=== PATIENT | male | born 1965 | race African-American/Black ===

== ENCOUNTER 2020-09-19 22:14 | Inpatient (IN) | payer MEDICARE, OTHER ==
[~2020-09-19] VITALS: Ht 167.6 cm; Wt 96.2 kg
[2020-09-19] MEDS ORDERED: HYDROMORPHONE 1MG/1ML INJ IV STA (22:33)
[2020-09-19] MEDS ORDERED: ONDANSETRON HCL INJ 2MG/ML 2ML 2 MG/ML VIAL IV STA (22:33)
[2020-09-19] MEDS ORDERED: DIATRIZOATE MEGL/DIATRIZOA SOD 30 ML BTL PO ONE (22:37)
[2020-09-19 23:07] LABS: BASOPHILS % 0.5 % (0.0-1.0); EOSINOPHILS # (AUTO) 0.2 (0.0-0.4); EOSINOPHILS % 2.5 % (0.0-6.0); HEMATOCRIT 26.8 % (38.2-49.6); HEMOGLOBIN 8.4 g/dL (14.0-18.0); LYMPHOCYTES # (AUTO) 1.4 (1.0-3.2); LYMPHOCYTES % 17.1 % (18.0-39.1); MEAN CORPUSCULAR HEMOGLOBIN 30.7 pg (28-32); MEAN CORPUSCULAR HGB CONC 31.3 g/dL (31-35); MEAN CORPUSCULAR VOLUME 97.8 fL (81-99); MONOCYTES # (AUTO) 1.2 (0.2-0.8); MONOCYTES % 14.9 % (4.4-11.3); NEUTROPHILS # (AUTO) 5.4 (2.1-6.9); NEUTROPHILS % 64.6 % (38.7-80.0); PLATELET COUNT 311 x10e3/uL (140-360); RED BLOOD COUNT 2.74 x10e6/uL (4.3-5.7); RED CELL DISTRIBUTION WIDTH 13.2 % (11.7-14.4)
[2020-09-19 23:27] LABS: ALBUMIN 2.3 g/dL (3.5-5.0); ALBUMIN/GLOBULIN RATIO 0.5 (0.8-2.0); ANION GAP 20.8 mmol/L (8-16); CALCIUM 8.9 mg/dL (8.4-10.2); CREATININE, SERUM 13.23 mg/dL (0.72-1.25); POTASSIUM 4.8 mmol/L (3.5-5.1)
[2020-09-19] MEDS ORDERED: IOPAMIDOL 370 MG/ML 200 ML INFUS..BTL INJ ONE (23:27)
[2020-09-20] VITALS (10 sets, daily range): BP systolic 125–145; BP diastolic 80–93
[2020-09-20] MEDS ORDERED: ONDANSETRON HCL INJ 2MG/ML 2ML 2 MG/ML VIAL IV STA (00:56)
[2020-09-20] MEDS ORDERED: HYDROMORPHONE 1MG/1ML INJ IV STA (00:56)
[2020-09-20] MEDS ORDERED: CLONAZEPAM1 MG PO (04:38)
[2020-09-20] MEDS ORDERED: LEXAPRO10 MG PO (04:38)
[2020-09-20] MEDS ORDERED: CARVEDILOL12.5 MG PO (04:38)
[2020-09-20] MEDS ORDERED: MIRALAX17 GM PO (04:38)
[2020-09-20] MEDS ORDERED: LISINOPRIL10 MG PO (04:38)
[2020-09-20] MEDS ORDERED: VELPHORO500 MG PO (04:38)
[2020-09-20] MEDS ORDERED: PROTONIX20 MG PO (04:38)
[2020-09-20] MEDS ORDERED: LIPITOR10 MG PO (04:38)
[2020-09-20] MEDS: HYDROMORPHONE 1MG/1ML INJ IV PRN ×6 (05:18→21:43)
[2020-09-20] MEDS: ONDANSETRON HCL INJ 2MG/ML 2ML 2 MG/ML VIAL IV PRN ×5 (05:18→21:43)
[2020-09-20] MEDS ORDERED: SODIUM CHLORIDE 0.9% 1000ML 2,000 ML ONE ×2 (10:16→11:18)
[2020-09-20] MEDS ORDERED: CEFEPIME HCL 1 GM VIAL IV SCH (14:15)
[2020-09-20] MEDS ORDERED: CEFEPIME 1GM/NS 0.9% 50 ML 50 ML IV SCH ×2 (14:45→17:00)
[2020-09-20] MEDS: METRONIDAZOLE 500MG/NS 100ML 100 ML IV SCH ×2 (15:36→21:43)
[2020-09-20] MEDS ORDERED: SODIUM CHLORIDE 0.9% 250ML 250 ML ONE (15:36)
[2020-09-20] MEDS: CEFEPIME 1GM/NS 0.9% 50 ML 50 ML IV SCH (16:46)
[2020-09-21] VITALS (8 sets, daily range): BP systolic 121–166; BP diastolic 80–99
[2020-09-21] MEDS: ONDANSETRON HCL INJ 2MG/ML 2ML 2 MG/ML VIAL IV PRN ×5 (01:51→20:40)
[2020-09-21] MEDS: HYDROMORPHONE 1MG/1ML INJ IV PRN ×5 (01:51→20:40)
[2020-09-21] MEDS: CEFEPIME 1GM/NS 0.9% 50 ML 50 ML IV SCH ×2 (04:34→17:00)
[2020-09-21] MEDS: METRONIDAZOLE 500MG/NS 100ML 100 ML IV SCH ×3 (05:45→21:41)
[2020-09-21] MEDS: FAMOTIDINE 20 MG/2 ML VIAL IV SCH (10:41)
[2020-09-21 15:21] LABS: BASOPHILS # (AUTO) 0.1 (0.0-0.1); BASOPHILS % 0.6 % (0.0-1.0); EOSINOPHILS # (AUTO) 0.3 (0.0-0.4); EOSINOPHILS % 3.6 % (0.0-6.0); HEMATOCRIT 26.6 % (38.2-49.6); HEMOGLOBIN 8.4 g/dL (14.0-18.0); LYMPHOCYTES % 11.9 % (18.0-39.1); MEAN CORPUSCULAR HGB CONC 31.6 g/dL (31-35); MEAN CORPUSCULAR VOLUME 98.2 fL (81-99); MONOCYTES # (AUTO) 0.9 (0.2-0.8); MONOCYTES % 10.9 % (4.4-11.3); NEUTROPHILS % 72.6 % (38.7-80.0); PLATELET COUNT 348 x10e3/uL (140-360); RED BLOOD COUNT 2.71 x10e6/uL (4.3-5.7)
[2020-09-21 15:47] LABS: ANION GAP 21.8 mmol/L (8-16); CREATININE, SERUM 16.13 mg/dL (0.72-1.25); POTASSIUM 5.8 mmol/L (3.5-5.1)
[2020-09-21] MEDS: DEXTROSE 5% 1,000 ML IV SCH (16:15)
[2020-09-21 16:31] LABS: FERRITIN 1644.07 ng/mL (21.81-274.66)
[2020-09-21] MEDS ORDERED: DEXTROSE 10% 1,000 ML IV SCH (23:30)
[2020-09-22] VITALS (7 sets, daily range): BP systolic 120–154; BP diastolic 73–93
[2020-09-22] MEDS: ONDANSETRON HCL INJ 2MG/ML 2ML 2 MG/ML VIAL IV PRN ×2 (01:00→05:28)
[2020-09-22] MEDS: HYDROMORPHONE 1MG/1ML INJ IV PRN ×6 (01:00→21:08)
[2020-09-22] MEDS: CEFEPIME 1GM/NS 0.9% 50 ML 50 ML IV SCH ×2 (05:00→18:27)
[2020-09-22] MEDS: METRONIDAZOLE 500MG/NS 100ML 100 ML IV SCH ×3 (06:00→21:27)
[2020-09-22 06:35] LABS: INR 1.08; PROTHROMBIN TIME 14.6 seconds (11.9-14.5)
[2020-09-22] MEDS ORDERED: SODIUM CHLORIDE 0.9% 1000ML 2,000 ML ONE (08:51)
[2020-09-22] MEDS: DEXTROSE 5% 1,000 ML IV SCH (08:55)
[2020-09-22] MEDS: FAMOTIDINE 20 MG/2 ML VIAL IV SCH (09:18)
[2020-09-22] MEDS: IRON SUCROSE 100 MG in SODIUM CHLORIDE 0.9% 100 ML 100 ML IV SCH ×2 (09:18→09:22)
[2020-09-22] MEDS ORDERED: DEXTROSE 10% 1,000 ML IV SCH (14:15)
[2020-09-22] MEDS ORDERED: DEXTROSE 50% SYRINGE 50 ML IV PRN (14:30)
[2020-09-22] MEDS: INSULIN LISPRO 100 UNIT/1 ML 3ML VIAL SQ SCH (17:55)
[2020-09-22 18:02] LABS: LYMPHOCYTES,BODY FLUID 92 %; MONO/MACROPHG,BODY FLUID 5 %; NEUTROPHILS,BODY FLUID 1 %; OTHER CELLS,BODY FLUID 2 %
[2020-09-22 18:11] LABS: BODY FLUID TYPE PERITONEAL
[2020-09-22 18:12] LABS: BODY FLUID APPEARANCE TURBID; BODY FLUID COLOR YELLOW; RBC,BODY FLUID 117 cells/uL; WBC,BODY FLUID 81 cells/uL
[2020-09-22] MEDS: EPOETIN ALFA-EPBX 10,000 UNIT/ML VIAL SC SCH (18:27)
[2020-09-22] MEDS: CENTRAL TPN FORMULA 1 BAG IV SCH (20:00)
[2020-09-22] MEDS: PROMETHAZINE 12.5MG/ NACL 0.9% 12.5 MG/50 ML BAG IV PRN (21:08)
[2020-09-23] MEDS: HYDROMORPHONE 1MG/1ML INJ IV PRN ×6 (01:10→22:34)
[2020-09-23] MEDS ORDERED: LORAZEPAM INJ 2 MG/ML VIAL IV ONE (01:45)
[2020-09-23 04:00] VITALS: BP 137/93
[2020-09-23] MEDS: CEFEPIME 1GM/NS 0.9% 50 ML 50 ML IV SCH (05:00)
[2020-09-23] MEDS: INSULIN LISPRO 100 UNIT/1 ML 3ML VIAL SQ SCH ×4 (06:00→18:00)
[2020-09-23] MEDS: METRONIDAZOLE 500MG/NS 100ML 100 ML IV SCH ×3 (06:00→21:19)
[2020-09-23] MEDS: PROMETHAZINE 12.5MG/ NACL 0.9% 12.5 MG/50 ML BAG IV PRN ×2 (06:00→22:33)
[2020-09-23 07:39] LABS: BASOPHILS # (AUTO) 0.1 (0.0-0.1); EOSINOPHILS # (AUTO) 0.4 (0.0-0.4); HEMATOCRIT 24.2 % (38.2-49.6); HEMOGLOBIN 7.7 g/dL (14.0-18.0); LYMPHOCYTES # (AUTO) 0.9 (1.0-3.2); LYMPHOCYTES % 12.7 % (18.0-39.1); MEAN CORPUSCULAR HEMOGLOBIN 30.8 pg (28-32); MEAN CORPUSCULAR HGB CONC 31.8 g/dL (31-35); MEAN CORPUSCULAR VOLUME 96.8 fL (81-99); MONOCYTES # (AUTO) 1.1 (0.2-0.8); MONOCYTES % 14.5 % (4.4-11.3); NEUTROPHILS # (AUTO) 4.9 (2.1-6.9); NEUTROPHILS % 66.4 % (38.7-80.0); PLATELET COUNT 307 x10e3/uL (140-360)
[2020-09-23 07:59] VITALS: BP 130/95
[2020-09-23 08:04] LABS: ALBUMIN 1.9 g/dL (3.5-5.0); ALBUMIN/GLOBULIN RATIO 0.4 (0.8-2.0); ANION GAP 11.6 mmol/L (8-16); CALCIUM 8.2 mg/dL (8.4-10.2); CREATININE, SERUM 10.6 mg/dL (0.72-1.25); POTASSIUM 3.6 mmol/L (3.5-5.1)
[2020-09-23 08:07] LABS: CALCIUM IONIZED 1.2 mmol/L (1.09-1.30)
[2020-09-23 08:14] LABS: MAGNESIUM 1.7 MG/DL (1.3-2.1); PHOSPHORUS 3.9 MG/DL (2.3-4.7)
[2020-09-23 08:24] LABS: BILIRUBIN,DIRECT 0.1 mg/dL (0.0-0.5)
[2020-09-23 08:47] VITALS: BP 130/95
[2020-09-23 13:12] VITALS: BP 151/90
[2020-09-23] MEDS: FAMOTIDINE 20 MG/2 ML VIAL IV SCH (14:22)
[2020-09-23] MEDS: CLONIDINE HCL 0.2 MG/24 HR 1 EA PATCH TOP SCH (14:35)
[2020-09-23 16:26] VITALS: BP 154/93
[2020-09-23] MEDS: CENTRAL TPN FORMULA 1 BAG IV SCH (19:41)
[2020-09-23 20:00] VITALS: BP_SYST 147; BP_SYST 154; BP_DIAS 93
[2020-09-23] MEDS: BISACODYL 10 MG SUPP PR SCH (20:56)
[2020-09-24] VITALS (13 sets, daily range): BP systolic 121–159; BP diastolic 80–103
[2020-09-24] MEDS: HYDROMORPHONE 1MG/1ML INJ IV PRN ×4 (02:12→21:35)
[2020-09-24] MEDS: METRONIDAZOLE 500MG/NS 100ML 100 ML IV SCH ×3 (05:01→22:11)
[2020-09-24] MEDS: CEFEPIME 1GM/NS 0.9% 50 ML 50 ML IV SCH (05:06)
[2020-09-24] MEDS: INSULIN LISPRO 100 UNIT/1 ML 3ML VIAL SQ SCH ×4 (06:00→20:23)
[2020-09-24] MEDS: PROMETHAZINE 12.5MG/ NACL 0.9% 12.5 MG/50 ML BAG IV PRN (06:04)
[2020-09-24 07:08] LABS: ALBUMIN/GLOBULIN RATIO 0.4 (0.8-2.0); ANION GAP 15.7 mmol/L (8-16); CREATININE, SERUM 12.19 mg/dL (0.72-1.25); POTASSIUM 3.7 mmol/L (3.5-5.1)
[2020-09-24] MEDS ORDERED: SODIUM CHLORIDE 0.9% 1000ML 2,000 ML ONE (08:50)
[2020-09-24] MEDS ORDERED: HEPARIN SOD (PORCINE) 5,000 UNIT/ML VIAL SC SCH (09:00)
[2020-09-24] MEDS: FAMOTIDINE 20 MG/2 ML VIAL IV SCH (09:00)
[2020-09-24] MEDS: BISACODYL 10 MG SUPP PR SCH (09:00)
[2020-09-24] MEDS: IRON SUCROSE 100 MG in SODIUM CHLORIDE 0.9% 100 ML 100 ML IV SCH (09:00)
[2020-09-24] MEDS ORDERED: ALBUMIN 25% 12.5GM 0.25 GM/ML BTL IV PRN (10:15)
[2020-09-24] MEDS ORDERED: SODIUM CHLORIDE 0.9% 1000ML 2,000 ML IV PRN (10:15)
[2020-09-24] MEDS ORDERED: SODIUM CHLORIDE 0.9% 250ML 250 ML IV ONE (12:00)
[2020-09-24] MEDS ORDERED: MIDAZOLAM HCL 2 MG/2 ML VIAL ONE (12:05)
[2020-09-24] MEDS ORDERED: FENTANYL CITRATE/PF 100MCG/2 ML INJ ONE ×2 (12:05→17:19)
[2020-09-24] MEDS ORDERED: HEPARIN SOD/SOD CHLORIDE 1,000 ML ONE (12:06)
[2020-09-24] MEDS ORDERED: SODIUM CHLORIDE 0.9% IV ONE (14:00)
[2020-09-24] MEDS ORDERED: DESMOPRESSIN ACETATE IV ONE (14:00)
[2020-09-24] MEDS ORDERED: BUPIVACAINE LIPOSOME/PF 266 MG/20 ML IJ ONE (16:26)
[2020-09-24] MEDS ORDERED: BUPIVACAINE 0.25% 30ML SDV ONE (16:27)
[2020-09-24] MEDS ORDERED: ONDANSETRON HCL INJ 2MG/ML 2ML 2 MG/ML VIAL ONE ×2 (16:31→17:18)
[2020-09-24] MEDS ORDERED: ROCURONIUM BROMIDE 10 MG/ML 5ML VIAL IV ONE (16:31)
[2020-09-24] MEDS ORDERED: GLYCOPYRROLATE INJ 0.2 MG/ML VIAL ONE (16:31)
[2020-09-24] MEDS ORDERED: SEVOFLURANE INHAL SOLN 250 ML PEN BTL ONE (16:31)
[2020-09-24] MEDS ORDERED: LIDOCAINE HCL 2% LOCAL INJ 5 ML SDV VIAL INJ ONE (16:31)
[2020-09-24] MEDS ORDERED: PROPOFOL IV EMULSION 10 MG/ML 20 ML VIAL ONE (16:31)
[2020-09-24] MEDS ORDERED: NEOSTIGMINE 1 MG/ML 10ML VIAL ONE (16:31)
[2020-09-24] MEDS ORDERED: LIDOCAINE HCL 2% JELLY 5 ML TUBE ONE (16:31)
[2020-09-24] MEDS ORDERED: ONDANSETRON HCL INJ 2MG/ML 2ML 2 MG/ML VIAL IV PRN (17:00)
[2020-09-24] MEDS: SODIUM CHLORIDE 0.9% 250ML IRRIG IR SCH ×2 (17:00→20:52)
[2020-09-24] MEDS ORDERED: HYDROMORPHONE 1MG/1ML INJ ONE (18:30)
[2020-09-24] MEDS: ACETAMINOPHEN 1000 MG/100 ML IV PRN (19:30)
[2020-09-24] MEDS: EPOETIN ALFA-EPBX 10,000 UNIT/ML VIAL SC SCH (19:52)
[2020-09-24 20:42] LABS: BASOPHILS % 0.4 % (0.0-1.0); EOSINOPHILS # (AUTO) 0.1 (0.0-0.4); EOSINOPHILS % 0.5 % (0.0-6.0); HEMOGLOBIN 10.9 g/dL (14.0-18.0); LYMPHOCYTES # (AUTO) 0.8 (1.0-3.2); LYMPHOCYTES % 8.4 % (18.0-39.1); MEAN CORPUSCULAR HEMOGLOBIN 31.3 pg (28-32); MEAN CORPUSCULAR HGB CONC 30.3 g/dL (31-35); MEAN CORPUSCULAR VOLUME 103.4 fL (81-99); MONOCYTES # (AUTO) 0.9 (0.2-0.8); MONOCYTES % 9.6 % (4.4-11.3); NEUTROPHILS # (AUTO) 7.6 (2.1-6.9); NEUTROPHILS % 80.8 % (38.7-80.0); PLATELET COUNT 298 x10e3/uL (140-360); RED BLOOD COUNT 3.48 x10e6/uL (4.3-5.7); RED CELL DISTRIBUTION WIDTH 13.1 % (11.7-14.4)
[2020-09-24] MEDS: CENTRAL TPN FORMULA 1 BAG IV SCH (20:52)
[2020-09-24 21:01] LABS: ANION GAP 16.5 mmol/L (8-16); CALCIUM 8.2 mg/dL (8.4-10.2); CREATININE, SERUM 6.94 mg/dL (0.72-1.25); POTASSIUM 3.5 mmol/L (3.5-5.1)
[2020-09-24] MEDS ORDERED: CLONAZEPAM 1 MG TAB ONE ×2 (21:58→21:59)
[2020-09-24] MEDS: CLONAZEPAM 1 MG TAB PO PRN (21:59)
[2020-09-25] VITALS (23 sets, daily range): BP systolic 94–187; BP diastolic 56–127
[2020-09-25] MEDS: HYDROMORPHONE 1MG/1ML INJ IV PRN ×2 (00:38→03:22)
[2020-09-25] MEDS: SODIUM CHLORIDE 0.9% 250ML IRRIG IR SCH ×6 (01:00→21:16)
[2020-09-25] MEDS ORDERED: ACETAMINOPHEN 1000 MG/100 ML 100 ML IV ONE (01:32)
[2020-09-25] MEDS: ACETAMINOPHEN 1000 MG/100 ML IV PRN (01:38)
[2020-09-25] MEDS ORDERED: HYDROMORPHONE 1MG/1ML INJ IV STA (04:13)
[2020-09-25] MEDS ORDERED: HYDROMORPHONE 1MG/1ML INJ ONE (04:23)
[2020-09-25 04:58] LABS: BASOPHILS # (AUTO) 0.1 (0.0-0.1); BASOPHILS % 0.6 % (0.0-1.0); EOSINOPHILS % 0.2 % (0.0-6.0); HEMATOCRIT 32.8 % (38.2-49.6); HEMOGLOBIN 10.1 g/dL (14.0-18.0); LYMPHOCYTES # (AUTO) 0.6 (1.0-3.2); LYMPHOCYTES % 4.4 % (18.0-39.1); MEAN CORPUSCULAR HEMOGLOBIN 30.4 pg (28-32); MEAN CORPUSCULAR HGB CONC 30.8 g/dL (31-35); MEAN CORPUSCULAR VOLUME 98.8 fL (81-99); MONOCYTES # (AUTO) 1.5 (0.2-0.8); MONOCYTES % 11.1 % (4.4-11.3); NEUTROPHILS # (AUTO) 11.1 (2.1-6.9); NEUTROPHILS % 83.2 % (38.7-80.0); PLATELET COUNT 377 x10e3/uL (140-360); RED BLOOD COUNT 3.32 x10e6/uL (4.3-5.7); RED CELL DISTRIBUTION WIDTH 13.1 % (11.7-14.4)
[2020-09-25 05:25] LABS: ALBUMIN 1.9 g/dL (3.5-5.0); ALBUMIN/GLOBULIN RATIO 0.4 (0.8-2.0); ANION GAP 16.6 mmol/L (8-16); CALCIUM 8.5 mg/dL (8.4-10.2); CREATININE, SERUM 7.94 mg/dL (0.72-1.25); POTASSIUM 3.6 mmol/L (3.5-5.1)
[2020-09-25] MEDS: INSULIN LISPRO 100 UNIT/1 ML 3ML VIAL SQ SCH ×4 (06:00→16:54)
[2020-09-25] MEDS ORDERED: ALTEPLASE RECOMBINANT 2 MG/2 ML VIAL ONE (06:24)
[2020-09-25] MEDS: ALTEPLASE RECOMBINANT 2 MG/2 ML VIAL IV PRN (06:26)
[2020-09-25] MEDS: CEFEPIME 1GM/NS 0.9% 50 ML 50 ML IV SCH (07:15)
[2020-09-25] MEDS: METRONIDAZOLE 500MG/NS 100ML 100 ML IV SCH ×3 (07:15→22:28)
[2020-09-25] MEDS ORDERED: HYDROMORPHONE 1MG/1ML INJ IV PRN (08:00)
[2020-09-25] MEDS: FAMOTIDINE 20 MG/2 ML VIAL IV SCH (08:29)
[2020-09-25] MEDS: IRON SUCROSE 100 MG in SODIUM CHLORIDE 0.9% 100 ML 100 ML IV SCH (08:29)
[2020-09-25] MEDS: CLONAZEPAM 1 MG TAB PO PRN (09:07)
[2020-09-25] MEDS ORDERED: HYDROMORPHONE 0.2MG/ML-SOD CHL 30ML PCA SYRINGE IV PRN ×2 (10:30→11:15)
[2020-09-25] MEDS ORDERED: NALOXONE HCL INJ 0.4 MG/ML AMP IV PRN (10:30)
[2020-09-25] MEDS ORDERED: ACETAMINOPHEN 1000 MG/100 ML IV PRN (10:30)
[2020-09-25] MEDS ORDERED: LACTATED RINGER'S 1,000 ML ONE (11:39)
[2020-09-25] MEDS: LACTATED RINGER'S 1,000 ML INJ SCH ×2 (11:48→21:19)
[2020-09-25] MEDS ORDERED: CLONAZEPAM 0.5 MG TAB PO PRN (13:00)
[2020-09-25] MEDS: CARVEDILOL 12.5 MG TAB PO SCH (17:36)
[2020-09-25] MEDS: NICARDIPINE 20MG/200ML PREMIX 200 ML IV PRN ×2 (17:37→22:29)
[2020-09-25] MEDS: HYDROMORPHONE 0.2MG/ML-SOD CHL 30ML PCA SYRINGE IV PRN (18:59)
[2020-09-25] MEDS ORDERED: CENTRAL TPN FORMULA 1 BAG IV SCH (20:00)
[2020-09-25] MEDS ORDERED: HALOPERIDOL LACTATE 5 MG/ML VIAL IM ONE (21:30)
[2020-09-25] MEDS ORDERED: HALOPERIDOL LACTATE 5 MG/ML VIAL ONE (21:35)
[2020-09-25] MEDS ORDERED: MELATONIN 5 MG TABLET PO STA (23:58)
[2020-09-26] VITALS (25 sets, daily range): BP systolic 114–152; BP diastolic 59–100
[2020-09-26] MEDS ORDERED: MELATONIN 3 MG TAB ONE (00:05)
[2020-09-26] MEDS: INSULIN LISPRO 100 UNIT/1 ML 3ML VIAL SQ SCH ×5 (00:26→23:38)
[2020-09-26] MEDS: SODIUM CHLORIDE 0.9% 250ML IRRIG IR SCH ×6 (00:37→21:38)
[2020-09-26] MEDS: NICARDIPINE 20MG/200ML PREMIX 200 ML IV PRN ×2 (01:30→09:00)
[2020-09-26 05:00] LABS: BASOPHILS # (AUTO) 0.1 (0.0-0.1); BASOPHILS % 0.4 % (0.0-1.0); EOSINOPHILS # (AUTO) 0.2 (0.0-0.4); EOSINOPHILS % 1.1 % (0.0-6.0); HEMATOCRIT 23.2 % (38.2-49.6); HEMOGLOBIN 7.4 g/dL (14.0-18.0); LYMPHOCYTES # (AUTO) 0.9 (1.0-3.2); LYMPHOCYTES % 5.2 % (18.0-39.1); MEAN CORPUSCULAR HEMOGLOBIN 30.7 pg (28-32); MEAN CORPUSCULAR HGB CONC 31.9 g/dL (31-35); MEAN CORPUSCULAR VOLUME 96.3 fL (81-99); MONOCYTES # (AUTO) 2.7 (0.2-0.8); MONOCYTES % 15.7 % (4.4-11.3); NEUTROPHILS % 76.8 % (38.7-80.0); PLATELET COUNT 343 x10e3/uL (140-360); RED BLOOD COUNT 2.41 x10e6/uL (4.3-5.7); RED CELL DISTRIBUTION WIDTH 13.2 % (11.7-14.4)
[2020-09-26 05:26] LABS: ALBUMIN 1.6 g/dL (3.5-5.0); ALBUMIN/GLOBULIN RATIO 0.4 (0.8-2.0); ANION GAP 14.6 mmol/L (8-16); CALCIUM 8.4 mg/dL (8.4-10.2); CREATININE, SERUM 9.58 mg/dL (0.72-1.25); POTASSIUM 3.6 mmol/L (3.5-5.1)
[2020-09-26] MEDS: CEFEPIME 1GM/NS 0.9% 50 ML 50 ML IV SCH (05:48)
[2020-09-26] MEDS: METRONIDAZOLE 500MG/NS 100ML 100 ML IV SCH ×3 (06:03→21:38)
[2020-09-26] MEDS: LACTATED RINGER'S 1,000 ML INJ SCH (07:44)
[2020-09-26] MEDS ORDERED: HALOPERIDOL LACTATE 5 MG/ML VIAL IV ONE (09:00)
[2020-09-26] MEDS ORDERED: HALOPERIDOL LACTATE 5 MG/ML VIAL IM PRN (09:30)
[2020-09-26] MEDS: FAMOTIDINE 20 MG/2 ML VIAL IV SCH (12:10)
[2020-09-26] MEDS: LORAZEPAM 0.5 MG TAB PO PRN (12:10)
[2020-09-26] MEDS: QUETIAPINE FUMARATE 25 MG TAB PO PRN (12:10)
[2020-09-26] MEDS: CARVEDILOL 12.5 MG TAB PO SCH ×2 (12:10→17:48)
[2020-09-26] MEDS: IRON SUCROSE 100 MG in SODIUM CHLORIDE 0.9% 100 ML 100 ML IV SCH (12:10)
[2020-09-26] MEDS: MICAFUNGIN SODIUM 100 ML IV SCH (13:09)
[2020-09-26] MEDS ORDERED: CENTRAL TPN FORMULA 1 BAG IV SCH (13:45)
[2020-09-26] MEDS ORDERED: DEXTROSE 10% 1,000 ML IV ONE (13:45)
[2020-09-26] MEDS: EPOETIN ALFA-EPBX 10,000 UNIT/ML VIAL SC SCH (17:46)
[2020-09-26] MEDS: HYDROMORPHONE 0.2MG/ML-SOD CHL 30ML PCA SYRINGE IV PRN (19:38)
[2020-09-26] MEDS: CENTRAL TPN FORMULA 1 BAG IV SCH (21:02)
[2020-09-26] MEDS: MELATONIN 5 MG TABLET PO SCH (21:38)
[2020-09-27] VITALS (25 sets, daily range): BP systolic 110–160; BP diastolic 50–128
[2020-09-27] MEDS: QUETIAPINE FUMARATE 25 MG TAB PO PRN (05:00)
[2020-09-27 05:48] LABS: BASOPHILS # (AUTO) 0.1 (0.0-0.1); BASOPHILS % 0.3 % (0.0-1.0); EOSINOPHILS # (AUTO) 0.5 (0.0-0.4); EOSINOPHILS % 3.1 % (0.0-6.0); HEMATOCRIT 23.1 % (38.2-49.6); HEMOGLOBIN 7.5 g/dL (14.0-18.0); LYMPHOCYTES % 5.9 % (18.0-39.1); MEAN CORPUSCULAR HEMOGLOBIN 31.6 pg (28-32); MEAN CORPUSCULAR HGB CONC 32.5 g/dL (31-35); MEAN CORPUSCULAR VOLUME 97.5 fL (81-99); MONOCYTES # (AUTO) 2.8 (0.2-0.8); MONOCYTES % 16.4 % (4.4-11.3); NEUTROPHILS # (AUTO) 12.7 (2.1-6.9); NEUTROPHILS % 73.8 % (38.7-80.0); PLATELET COUNT 329 x10e3/uL (140-360); RED BLOOD COUNT 2.37 x10e6/uL (4.3-5.7); RED CELL DISTRIBUTION WIDTH 13.5 % (11.7-14.4)
[2020-09-27] MEDS: SODIUM CHLORIDE 0.9% 250ML IRRIG IR SCH ×3 (05:53→12:04)
[2020-09-27] MEDS: CEFEPIME 1GM/NS 0.9% 50 ML 50 ML IV SCH (05:53)
[2020-09-27] MEDS: METRONIDAZOLE 500MG/NS 100ML 100 ML IV SCH ×3 (05:53→22:00)
[2020-09-27] MEDS: INSULIN LISPRO 100 UNIT/1 ML 3ML VIAL SQ SCH ×4 (06:00→23:42)
[2020-09-27 06:07] LABS: ALBUMIN 1.5 g/dL (3.5-5.0); ALBUMIN/GLOBULIN RATIO 0.3 (0.8-2.0); ANION GAP 12.5 mmol/L (8-16); CALCIUM 8.4 mg/dL (8.4-10.2); CREATININE, SERUM 6.69 mg/dL (0.72-1.25); POTASSIUM 3.5 mmol/L (3.5-5.1)
[2020-09-27] MEDS: DULOXETINE HCL 30 MG DELAYED RELEASE PO SCH ×3 (08:10→09:00)
[2020-09-27] MEDS: CARVEDILOL 12.5 MG TAB PO SCH ×2 (08:10→17:10)
[2020-09-27] MEDS: FAMOTIDINE 20 MG/2 ML VIAL IV SCH (08:10)
[2020-09-27] MEDS: IRON SUCROSE 100 MG in SODIUM CHLORIDE 0.9% 100 ML 100 ML IV SCH (08:11)
[2020-09-27] MEDS: HYDROMORPHONE 0.2MG/ML-SOD CHL 30ML PCA SYRINGE IV PRN ×2 (09:00→17:24)
[2020-09-27] MEDS ORDERED: HYDROMORPHONE 0.2MG/ML-SOD CHL 30ML PCA SYRINGE IV ONE (09:11)
[2020-09-27] MEDS: MICAFUNGIN SODIUM 100 ML IV SCH (09:47)
[2020-09-27] MEDS: LORAZEPAM 0.5 MG TAB PO PRN (17:11)
[2020-09-27] MEDS: CENTRAL TPN FORMULA 1 BAG IV SCH (20:26)
[2020-09-27] MEDS: MELATONIN 5 MG TABLET PO SCH (20:26)
[2020-09-28] VITALS (19 sets, daily range): BP systolic 122–166; BP diastolic 54–99
[2020-09-28] MEDS: HYDROMORPHONE 0.2MG/ML-SOD CHL 30ML PCA SYRINGE IV PRN (04:38)
[2020-09-28 05:53] LABS: BASOPHILS # (AUTO) 0.1 (0.0-0.1); BASOPHILS % 0.5 % (0.0-1.0); EOSINOPHILS # (AUTO) 0.6 (0.0-0.4); EOSINOPHILS % 4.5 % (0.0-6.0); HEMATOCRIT 22.8 % (38.2-49.6); HEMOGLOBIN 7.2 g/dL (14.0-18.0); LYMPHOCYTES # (AUTO) 1.3 (1.0-3.2); LYMPHOCYTES % 9.5 % (18.0-39.1); MEAN CORPUSCULAR HEMOGLOBIN 30.6 pg (28-32); MEAN CORPUSCULAR HGB CONC 31.6 g/dL (31-35); MONOCYTES # (AUTO) 2.8 (0.2-0.8); MONOCYTES % 19.9 % (4.4-11.3); NEUTROPHILS # (AUTO) 9.1 (2.1-6.9); NEUTROPHILS % 64.9 % (38.7-80.0); PLATELET COUNT 313 x10e3/uL (140-360); RED BLOOD COUNT 2.35 x10e6/uL (4.3-5.7); RED CELL DISTRIBUTION WIDTH 13.6 % (11.7-14.4)
[2020-09-28] MEDS: INSULIN LISPRO 100 UNIT/1 ML 3ML VIAL SQ SCH ×3 (06:00→15:49)
[2020-09-28] MEDS: CEFEPIME 1GM/NS 0.9% 50 ML 50 ML IV SCH (06:03)
[2020-09-28] MEDS: METRONIDAZOLE 500MG/NS 100ML 100 ML IV SCH ×3 (06:03→22:00)
[2020-09-28 06:12] LABS: ANION GAP 11.4 mmol/L (8-16); CALCIUM 8.4 mg/dL (8.4-10.2); CREATININE, SERUM 5.16 mg/dL (0.72-1.25); POTASSIUM 3.4 mmol/L (3.5-5.1)
[2020-09-28] MEDS: IRON SUCROSE 100 MG in SODIUM CHLORIDE 0.9% 100 ML 100 ML IV SCH (08:28)
[2020-09-28] MEDS: FAMOTIDINE 20 MG/2 ML VIAL IV SCH (08:28)
[2020-09-28] MEDS: LORAZEPAM 0.5 MG TAB PO PRN ×2 (08:29→15:59)
[2020-09-28] MEDS: CARVEDILOL 12.5 MG TAB PO SCH ×2 (08:29→15:59)
[2020-09-28] MEDS: DULOXETINE HCL 30 MG DELAYED RELEASE PO SCH (08:29)
[2020-09-28] MEDS: MICAFUNGIN SODIUM 100 ML IV SCH (09:30)
[2020-09-28] MEDS ORDERED: SODIUM CHLORIDE 0.9% 250ML 250 ML ONE (13:55)
[2020-09-28] MEDS: HYDROMORPHONE 1MG/1ML INJ IV PRN ×3 (14:04→21:39)
[2020-09-28] MEDS ORDERED: CENTRAL TPN FORMULA 1 BAG IV SCH (20:00)
[2020-09-28] MEDS: QUETIAPINE FUMARATE 25 MG TAB PO PRN (20:35)
[2020-09-28] MEDS: MELATONIN 5 MG TABLET PO SCH (20:35)
[2020-09-29] MEDS: INSULIN LISPRO 100 UNIT/1 ML 3ML VIAL SQ SCH ×4 (00:21→18:00)
[2020-09-29] MEDS: HYDROMORPHONE 1MG/1ML INJ IV PRN ×8 (00:39→23:12)
[2020-09-29 03:49] VITALS: BP 149/97
[2020-09-29] MEDS: CEFEPIME 1GM/NS 0.9% 50 ML 50 ML IV SCH (05:39)
[2020-09-29 06:11] LABS: BASOPHILS # (AUTO) 0.1 (0.0-0.1); BASOPHILS % 0.5 % (0.0-1.0); EOSINOPHILS # (AUTO) 0.5 (0.0-0.4); EOSINOPHILS % 4.1 % (0.0-6.0); HEMATOCRIT 21.9 % (38.2-49.6); LYMPHOCYTES # (AUTO) 1.5 (1.0-3.2); LYMPHOCYTES % 11.9 % (18.0-39.1); MEAN CORPUSCULAR VOLUME 96.9 fL (81-99); MONOCYTES # (AUTO) 2.9 (0.2-0.8); MONOCYTES % 23.3 % (4.4-11.3); NEUTROPHILS # (AUTO) 7.4 (2.1-6.9); NEUTROPHILS % 59.3 % (38.7-80.0); PLATELET COUNT 279 x10e3/uL (140-360); RED BLOOD COUNT 2.26 x10e6/uL (4.3-5.7); RED CELL DISTRIBUTION WIDTH 13.5 % (11.7-14.4)
[2020-09-29 06:35] LABS: ALBUMIN 1.5 g/dL (3.5-5.0); ALBUMIN/GLOBULIN RATIO 0.3 (0.8-2.0); ANION GAP 11.2 mmol/L (8-16); CALCIUM 8.3 mg/dL (8.4-10.2); CREATININE, SERUM 6.82 mg/dL (0.72-1.25); MAGNESIUM 1.7 MG/DL (1.3-2.1); POTASSIUM 3.2 mmol/L (3.5-5.1)
[2020-09-29] MEDS: METRONIDAZOLE 500MG/NS 100ML 100 ML IV SCH ×3 (06:43→21:25)
[2020-09-29] MEDS ORDERED: SODIUM CHLORIDE 0.9% 1000ML 2,000 ML ONE (07:47)
[2020-09-29 08:35] VITALS: BP 156/86
[2020-09-29] MEDS: FAMOTIDINE 20 MG/2 ML VIAL IV SCH (08:50)
[2020-09-29] MEDS: IRON SUCROSE 100 MG in SODIUM CHLORIDE 0.9% 100 ML 100 ML IV SCH (08:50)
[2020-09-29] MEDS: DULOXETINE HCL 30 MG DELAYED RELEASE PO SCH (08:51)
[2020-09-29] MEDS: CARVEDILOL 12.5 MG TAB PO SCH ×3 (08:51→12:00)
[2020-09-29 08:55] VITALS: BP 156/86
[2020-09-29] MEDS ORDERED: BISACODYL 10 MG SUPP PR ONE (09:30)
[2020-09-29] MEDS: MICAFUNGIN SODIUM 100 ML IV SCH (09:34)
[2020-09-29 12:05] VITALS: BP 158/87
[2020-09-29 15:38] VITALS: BP 166/101
[2020-09-29 20:00] VITALS: BP 168/90
[2020-09-29] MEDS: ONDANSETRON HCL INJ 2MG/ML 2ML 2 MG/ML VIAL IV PRN (20:00)
[2020-09-29] MEDS ORDERED: CENTRAL TPN FORMULA 1 BAG IV SCH (20:00)
[2020-09-29] MEDS: MELATONIN 5 MG TABLET PO SCH (21:25)
[2020-09-30] VITALS (8 sets, daily range): BP systolic 140–170; BP diastolic 79–95
[2020-09-30] MEDS: INSULIN LISPRO 100 UNIT/1 ML 3ML VIAL SQ SCH ×2 (01:19→06:30)
[2020-09-30] MEDS: HYDROMORPHONE 1MG/1ML INJ IV PRN ×6 (02:14→21:02)
[2020-09-30] MEDS: METRONIDAZOLE 500MG/NS 100ML 100 ML IV SCH ×2 (05:23→15:45)
[2020-09-30] MEDS: ONDANSETRON HCL INJ 2MG/ML 2ML 2 MG/ML VIAL IV PRN ×2 (05:24→21:02)
[2020-09-30] MEDS: CEFEPIME 1GM/NS 0.9% 50 ML 50 ML IV SCH (06:05)
[2020-09-30] MEDS: FAMOTIDINE 20 MG/2 ML VIAL IV SCH (07:48)
[2020-09-30] MEDS: IRON SUCROSE 100 MG in SODIUM CHLORIDE 0.9% 100 ML 100 ML IV SCH (07:48)
[2020-09-30] MEDS: ESCITALOPRAM OXALATE 10 MG TAB PO SCH (07:49)
[2020-09-30] MEDS: CARVEDILOL 12.5 MG TAB PO SCH ×2 (08:33→17:22)
[2020-09-30] MEDS: CLONIDINE HCL 0.2 MG/24 HR 1 EA PATCH TOP SCH (15:45)
[2020-09-30] MEDS: MELATONIN 5 MG TABLET PO SCH ×2 (20:41→20:48)
[2020-09-30] MEDS: LORAZEPAM 0.5 MG TAB PO PRN (22:44)
[2020-10-01] VITALS (8 sets, daily range): BP systolic 133–160; BP diastolic 51–97
[2020-10-01] MEDS: HYDROMORPHONE 1MG/1ML INJ IV PRN ×6 (00:27→17:45)
[2020-10-01] MEDS: CARVEDILOL 12.5 MG TAB PO SCH ×2 (09:00→17:45)
[2020-10-01] MEDS: IRON SUCROSE 100 MG in SODIUM CHLORIDE 0.9% 100 ML 100 ML IV SCH ×2 (09:00→17:00)
[2020-10-01] MEDS: FAMOTIDINE 20 MG/2 ML VIAL IV SCH (09:10)
[2020-10-01] MEDS: ESCITALOPRAM OXALATE 10 MG TAB PO SCH (09:11)
[2020-10-01] MEDS: MELATONIN 5 MG TABLET PO SCH (21:00)
[2020-10-01] MEDS: HYDROCODONE/APAP 7.5MG-325MG 1 EA TAB PO PRN (21:35)
[2020-10-02] VITALS (8 sets, daily range): BP systolic 133–162; BP diastolic 81–90
[2020-10-02] MEDS: HYDROCODONE/APAP 7.5MG-325MG 1 EA TAB PO PRN ×3 (03:19→14:47)
[2020-10-02 05:35] LABS: BASOPHILS # (AUTO) 0.1 (0.0-0.1); BASOPHILS % 0.4 % (0.0-1.0); EOSINOPHILS # (AUTO) 0.5 (0.0-0.4); EOSINOPHILS % 4.4 % (0.0-6.0); HEMATOCRIT 21.2 % (38.2-49.6); LYMPHOCYTES # (AUTO) 1.2 (1.0-3.2); LYMPHOCYTES % 10.2 % (18.0-39.1); MEAN CORPUSCULAR HGB CONC 31.6 g/dL (31-35); MEAN CORPUSCULAR VOLUME 98.1 fL (81-99); MONOCYTES # (AUTO) 2.9 (0.2-0.8); NEUTROPHILS # (AUTO) 7.3 (2.1-6.9); NEUTROPHILS % 59.7 % (38.7-80.0); PLATELET COUNT 364 x10e3/uL (140-360); RED BLOOD COUNT 2.16 x10e6/uL (4.3-5.7); RED CELL DISTRIBUTION WIDTH 15.2 % (11.7-14.4)
[2020-10-02 05:54] LABS: HEMOGLOBIN 6.7 g/dL (14.0-18.0)
[2020-10-02 05:59] LABS: ANION GAP 14.1 mmol/L (8-16); CALCIUM 8.3 mg/dL (8.4-10.2); CREATININE, SERUM 5.32 mg/dL (0.72-1.25); POTASSIUM 3.1 mmol/L (3.5-5.1)
[2020-10-02 07:03] LABS: EOSINOPHILS % (MANUAL) 1 % (0-7); LYMPHOCYTES % (MANUAL) 7 % (19-48); MONOCYTES % (MANUAL) 20 % (3.4-9.0); NEUTROPHILS % (MANUAL) 71 % (40-74); PLATELET ESTIMATE SLIGHTLY INCREASED
[2020-10-02 07:05] LABS: RBC MORPHOLOGY COMMENT NORMAL
[2020-10-02 07:06] LABS: PLATELET MORPHOLOGY COMMENT FEW GIANT
[2020-10-02] MEDS: FAMOTIDINE 20 MG/2 ML VIAL IV SCH (08:45)
[2020-10-02] MEDS: IRON SUCROSE 100 MG in SODIUM CHLORIDE 0.9% 100 ML 100 ML IV SCH (08:46)
[2020-10-02] MEDS: ESCITALOPRAM OXALATE 10 MG TAB PO SCH (08:47)
[2020-10-02] MEDS: CARVEDILOL 12.5 MG TAB PO SCH ×2 (09:00→17:46)
[2020-10-02] MEDS ORDERED: HYDROMORPHONE 1MG/1ML INJ IV PRN (11:45)
[2020-10-02] MEDS: MELATONIN 5 MG TABLET PO SCH (21:00)
[2020-10-02] MEDS: HYDROMORPHONE 1MG/1ML INJ IV PRN (21:25)
[2020-10-02] MEDS: ONDANSETRON HCL INJ 2MG/ML 2ML 2 MG/ML VIAL IV PRN (21:25)
[2020-10-03] VITALS (7 sets, daily range): BP systolic 120–156; BP diastolic 79–98
[2020-10-03] MEDS: HYDROMORPHONE 1MG/1ML INJ IV PRN ×4 (01:55→17:59)
[2020-10-03] MEDS: METOCLOPRAMIDE HCL 10 MG/2ML VIAL IV SCH ×3 (06:11→18:00)
[2020-10-03] MEDS: FAMOTIDINE 20 MG/2 ML VIAL IV SCH (08:22)
[2020-10-03] MEDS: ESCITALOPRAM OXALATE 10 MG TAB PO SCH (08:22)
[2020-10-03] MEDS: CARVEDILOL 12.5 MG TAB PO SCH ×2 (08:28→18:00)
[2020-10-03] MEDS: ONDANSETRON HCL INJ 2MG/ML 2ML 2 MG/ML VIAL IV PRN (12:53)
[2020-10-03] MEDS: HYDROCODONE/APAP 7.5MG-325MG 1 EA TAB PO PRN (12:53)
== END 2020-10-03 22:00 | DRG 329 ==
LOC: ER 23:03 → ERHOLD 09-20 01:44 → MED/SURG3 09-20 03:15 → ICU 09-24 18:27 → MED/SURG 09-28 12:57
PROVIDERS: ADMIT Internal Medicine; ATTEND Internal Medicine
PROC: 02HV33Z Insertion of Infusion Device into Superior Vena Cava, Percutaneous Approach (ICD-10-PCS; 2020-09-22)
PROC: B548ZZA Ultrasonography of Superior Vena Cava, Guidance (ICD-10-PCS; 2020-09-22)
PROC: 3E0436Z Introduction of Nutritional Substance into Central Vein, Percutaneous Approach (ICD-10-PCS; 2020-09-22)
PROC: 0W9G3ZZ Drainage of Peritoneal Cavity, Percutaneous Approach (ICD-10-PCS; 2020-09-22)
PROC: 5A1D70Z Performance of Urinary Filtration, Intermittent, Less than 6 Hours Per Day (ICD-10-PCS; 2020-09-22)
PROC: 5A1D70Z Performance of Urinary Filtration, Intermittent, Less than 6 Hours Per Day (ICD-10-PCS; 2020-09-24)
PROC: 0DTF0ZZ Resection of Right Large Intestine, Open Approach (ICD-10-PCS; principal; 2020-09-24 14:00)
PROC: 5A1D70Z Performance of Urinary Filtration, Intermittent, Less than 6 Hours Per Day (ICD-10-PCS; 2020-09-26)
PROC: 5A1D70Z Performance of Urinary Filtration, Intermittent, Less than 6 Hours Per Day (ICD-10-PCS; 2020-09-27)
PROC: 5A1D70Z Performance of Urinary Filtration, Intermittent, Less than 6 Hours Per Day (ICD-10-PCS; 2020-09-29)
PROC: 5A1D70Z Performance of Urinary Filtration, Intermittent, Less than 6 Hours Per Day (ICD-10-PCS; 2020-10-01)
PROC: 5A1D70Z Performance of Urinary Filtration, Intermittent, Less than 6 Hours Per Day (ICD-10-PCS; 2020-10-03)
DX: K56.699 Other intestinal obstruction unspecified as to partial versus complete obstruction (principal); N18.6 End stage renal disease; K65.9 Peritonitis, unspecified; E85.4 Organ-limited amyloidosis; E87.1 Hypo-osmolality and hyponatremia; F33.1 Major depressive disorder, recurrent, moderate; I12.0 Hypertensive chronic kidney disease with stage 5 chronic kidney disease or end stage renal disease; Z88.5 Allergy status to narcotic agent; Z88.8 Allergy status to other drugs, medicaments and biological substances; Z99.2 Dependence on renal dialysis; E78.5 Hyperlipidemia, unspecified; E87.5 Hyperkalemia; D63.1 Anemia in chronic kidney disease; Z53.1 Procedure and treatment not carried out because of patient's decision for reasons of belief and group pressure; Z20.828 Contact with and (suspected) exposure to other viral communicable diseases; R45.1 Restlessness and agitation; R41.0 Disorientation, unspecified; F43.23 Adjustment disorder with mixed anxiety and depressed mood; E87.6 Hypokalemia
CPT/HCPCS: 36415; 36556; 36600; 49083; 71045; 74018; 74022; 74177; 74470; 76937; 77001; 80048; 80053; 82040; 82248; 82607; 82728; 82746; 82784; 82948; 83540; 83735; 84100; 84134; 84157; 84466; 84478; 84630; 85025; 85045; 85610; 86705; 86706; 87040; 87070; 87102; 87116; 87205; 87206; 87340; 88112; 88305; 88307; 88313; 89051; 90962; 96372; 96374; 96375; 97139; 99284; C1729; J0692; J1170; J1630; J1644; J1756; J2001; J2060; J2248; J2250; J2405; J2550; J2710; J2765; J2997; J3010; J7030; J7050; J7070; J7121; Q9967; U0002

== ENCOUNTER 2020-10-19 12:41 | Inpatient (IN) | payer MEDICARE, OTHER ==
[~2020-10-19] VITALS: Ht 167.6 cm; Wt 86.4 kg
[~2020-10-19 12:41] MED LIST: CARVEDILOL12.5 MG PO; CLONAZEPAM1 MG PO; LEXAPRO10 MG PO; LIPITOR10 MG PO; LISINOPRIL10 MG PO; MIRALAX17 GM PO; PROTONIX20 MG PO; VELPHORO500 MG PO
[2020-10-19] MEDS ORDERED: SODIUM CHLORIDE 0.9% 1000ML 1,000 ML IV STA (13:31)
[2020-10-19 13:39] LABS: BASOPHILS # (AUTO) 0.1 (0.0-0.1); BASOPHILS % 0.8 % (0.0-1.0); EOSINOPHILS # (AUTO) 0.3 (0.0-0.4); EOSINOPHILS % 2.5 % (0.0-6.0); HEMATOCRIT 25.8 % (38.2-49.6); HEMOGLOBIN 8.1 g/dL (14.0-18.0); LYMPHOCYTES % 16.2 % (18.0-39.1); MEAN CORPUSCULAR HEMOGLOBIN 31.8 pg (28-32); MEAN CORPUSCULAR HGB CONC 31.4 g/dL (31-35); MEAN CORPUSCULAR VOLUME 101.2 fL (81-99); MONOCYTES # (AUTO) 1.9 (0.2-0.8); NEUTROPHILS # (AUTO) 8.1 (2.1-6.9); NEUTROPHILS % 64.9 % (38.7-80.0); PLATELET COUNT 418 x10e3/uL (140-360); RED BLOOD COUNT 2.55 x10e6/uL (4.3-5.7); RED CELL DISTRIBUTION WIDTH 15.5 % (11.7-14.4)
[2020-10-19] MEDS ORDERED: ONDANSETRON HCL INJ 2MG/ML 2ML 2 MG/ML VIAL IV PRN ×3 (13:45→21:45)
[2020-10-19] MEDS ORDERED: FENTANYL CITRATE/PF 100MCG/2 ML INJ IV ONE (13:45)
[2020-10-19 14:10] LABS: ALBUMIN 1.6 g/dL (3.5-5.0); ALBUMIN/GLOBULIN RATIO 0.3 (0.8-2.0); ANION GAP 15.9 mmol/L (8-16); CALCIUM 8.6 mg/dL (8.4-10.2); CREATININE, SERUM 8.54 mg/dL (0.72-1.25)
[2020-10-19 14:15] LABS: POTASSIUM 2.9 mmol/L (3.5-5.1)
[2020-10-19] MEDS ORDERED: POTASSIUM CHLORIDE 20MEQ/100ML 200 ML IV ONE (14:30)
[2020-10-19] MEDS ORDERED: IOPAMIDOL 370 MG/ML 200 ML INFUS..BTL INJ ONE (14:55)
[2020-10-19] MEDS ORDERED: SODIUM CHLORIDE 0.9% 50ML 50 ML ONE (14:55)
[2020-10-19] MEDS ORDERED: PIPERACILLIN/TAZO 4.5 GM 100 ML IV STA (15:45)
[2020-10-19] MEDS ORDERED: MORPHINE SULFATE INJ 2 MG/ML SYR IV PRN (16:30)
[2020-10-19] MEDS ORDERED: MORPHINE SULFATE INJ 4 MG/ML INJ 1ML IV PRN (16:45)
[2020-10-19 20:00] VITALS: BP 138/53
[2020-10-19] MEDS: HYDROMORPHONE 1MG/1ML INJ IV PRN (21:40)
[2020-10-19] MEDS ORDERED: ACETAMINOPHEN 325 MG TAB PO PRN (21:45)
[2020-10-19] MEDS ORDERED: HYDRALAZINE HCL 20 MG/ML VIAL IV PRN (21:45)
[2020-10-19] MEDS ORDERED: POTASSIUM CHLORIDE 20MEQ/100ML 100 ML IV STA (21:52)
[2020-10-19] MEDS ORDERED: PIPER-TAZ 3.375 GM 50 ML IV SCH (22:00)
[2020-10-19] MEDS ORDERED: DEXTROSE 5% 1,000 ML IV ONE (22:00)
[2020-10-19 22:30] VITALS: BP 138/53
[2020-10-19] MEDS ORDERED: GARLIC1 EAC1 PO (23:52)
[2020-10-19] MEDS ORDERED: CALCITRIOL0.5 MCG PO (23:52)
[2020-10-19] MEDS ORDERED: DOCOSAHEXAENOIC ACID PO (23:53)
[2020-10-19] MEDS ORDERED: FISH OIL PO (23:53)
[2020-10-20] VITALS (9 sets, daily range): BP systolic 131–167; BP diastolic 76–91
[2020-10-20] MEDS: HYDROMORPHONE 1MG/1ML INJ IV PRN ×8 (00:50→23:55)
[2020-10-20 06:29] LABS: BASOPHILS # (AUTO) 0.1 (0.0-0.1); BASOPHILS % 0.6 % (0.0-1.0); EOSINOPHILS # (AUTO) 0.4 (0.0-0.4); EOSINOPHILS % 3.4 % (0.0-6.0); HEMATOCRIT 23.8 % (38.2-49.6); HEMOGLOBIN 7.3 g/dL (14.0-18.0); LYMPHOCYTES # (AUTO) 1.5 (1.0-3.2); MEAN CORPUSCULAR HEMOGLOBIN 31.6 pg (28-32); MEAN CORPUSCULAR HGB CONC 30.7 g/dL (31-35); MONOCYTES % 15.8 % (4.4-11.3); NEUTROPHILS # (AUTO) 8.5 (2.1-6.9); NEUTROPHILS % 67.3 % (38.7-80.0); PLATELET COUNT 391 x10e3/uL (140-360); RED BLOOD COUNT 2.31 x10e6/uL (4.3-5.7); RED CELL DISTRIBUTION WIDTH 15.8 % (11.7-14.4)
[2020-10-20 06:54] LABS: ANION GAP 13.2 mmol/L (8-16); CALCIUM 8.1 mg/dL (8.4-10.2); CREATININE, SERUM 9.39 mg/dL (0.72-1.25); POTASSIUM 3.2 mmol/L (3.5-5.1)
[2020-10-20] MEDS ORDERED: ATORVASTATIN 10 MG TAB PO SCH (09:00)
[2020-10-20] MEDS: PIPER-TAZ 3.375 GM 50 ML IV SCH (09:09)
[2020-10-20] MEDS: FAMOTIDINE 20 MG/2 ML VIAL IV SCH (09:09)
[2020-10-20] MEDS ORDERED: POTASSIUM CHLORIDE 10MEQ/100ML 100 ML IV ONE (14:30)
[2020-10-20] MEDS: IRON SUCROSE 100 MG in SODIUM CHLORIDE 0.9% 100 ML 100 ML IV SCH (17:39)
[2020-10-21] MEDS: PIPER-TAZ 3.375 GM 50 ML IV SCH ×3 (00:07→21:07)
[2020-10-21] MEDS: EPOETIN ALFA-EPBX 10,000 UNIT/ML VIAL SC SCH (00:08)
[2020-10-21 04:00] VITALS: BP 124/73
[2020-10-21] MEDS: HYDROMORPHONE 1MG/1ML INJ IV PRN ×4 (04:20→21:07)
[2020-10-21 05:32] LABS: BASOPHILS # (AUTO) 0.1 (0.0-0.1); BASOPHILS % 0.7 % (0.0-1.0); EOSINOPHILS # (AUTO) 0.6 (0.0-0.4); EOSINOPHILS % 4.8 % (0.0-6.0); HEMATOCRIT 23.9 % (38.2-49.6); HEMOGLOBIN 7.3 g/dL (14.0-18.0); LYMPHOCYTES # (AUTO) 1.1 (1.0-3.2); LYMPHOCYTES % 9.3 % (18.0-39.1); MEAN CORPUSCULAR HEMOGLOBIN 31.3 pg (28-32); MEAN CORPUSCULAR HGB CONC 30.5 g/dL (31-35); MEAN CORPUSCULAR VOLUME 102.6 fL (81-99); MONOCYTES # (AUTO) 1.8 (0.2-0.8); MONOCYTES % 14.5 % (4.4-11.3); NEUTROPHILS # (AUTO) 8.6 (2.1-6.9); NEUTROPHILS % 69.9 % (38.7-80.0); PLATELET COUNT 373 x10e3/uL (140-360); RED BLOOD COUNT 2.33 x10e6/uL (4.3-5.7); RED CELL DISTRIBUTION WIDTH 15.5 % (11.7-14.4)
[2020-10-21 06:05] LABS: ANION GAP 12.1 mmol/L (8-16); CALCIUM 8.1 mg/dL (8.4-10.2); CREATININE, SERUM 5.89 mg/dL (0.72-1.25); POTASSIUM 3.1 mmol/L (3.5-5.1)
[2020-10-21 06:07] LABS: INR 1.2; PROTHROMBIN TIME 15.8 seconds (11.9-14.5)
[2020-10-21 06:08] LABS: PARTIAL THROMBOPLASTIN TIME 45.4 seconds (23.8-35.5)
[2020-10-21] MEDS ORDERED: CLINDAMYCIN 300MG 50 ML IV SCH (06:30)
[2020-10-21 08:30] VITALS: BP 127/80
[2020-10-21 08:41] VITALS: BP 127/80
[2020-10-21] MEDS ORDERED: FENTANYL CITRATE/PF 100MCG/2 ML INJ ONE (08:53)
[2020-10-21] MEDS ORDERED: MIDAZOLAM HCL 2 MG/2 ML VIAL ONE (08:53)
[2020-10-21] MEDS ORDERED: SODIUM CHLORIDE 0.9% 1000ML 2,000 ML IV PRN (09:30)
[2020-10-21] MEDS ORDERED: SODIUM CHLORIDE 0.9% 250ML 500 ML IV PRN (09:30)
[2020-10-21] MEDS ORDERED: POTASSIUM CHLORIDE 20MEQ/100ML 100 ML IV ONE (10:15)
[2020-10-21] MEDS: FAMOTIDINE 20 MG/2 ML VIAL IV SCH (10:50)
[2020-10-21] MEDS ORDERED: ALTEPLASE RECOMBINANT 2 MG/2 ML VIAL IV ONE (12:30)
[2020-10-21] MEDS: IRON SUCROSE 100 MG in SODIUM CHLORIDE 0.9% 100 ML 100 ML IV SCH (15:43)
[2020-10-21 16:05] VITALS: BP 112/66
[2020-10-21 16:21] VITALS: BP 127/83
[2020-10-21 21:00] VITALS: BP 130/87
[2020-10-22] VITALS (8 sets, daily range): BP systolic 117–155; BP diastolic 69–95
[2020-10-22] MEDS: HYDROMORPHONE 1MG/1ML INJ IV PRN ×8 (00:48→22:15)
[2020-10-22 05:47] LABS: BASOPHILS # (AUTO) 0.1 (0.0-0.1); BASOPHILS % 0.8 % (0.0-1.0); EOSINOPHILS # (AUTO) 0.6 (0.0-0.4); EOSINOPHILS % 5.5 % (0.0-6.0); HEMATOCRIT 23.2 % (38.2-49.6); HEMOGLOBIN 7.3 g/dL (14.0-18.0); LYMPHOCYTES # (AUTO) 1.4 (1.0-3.2); LYMPHOCYTES % 12.9 % (18.0-39.1); MEAN CORPUSCULAR HEMOGLOBIN 31.9 pg (28-32); MEAN CORPUSCULAR HGB CONC 31.5 g/dL (31-35); MEAN CORPUSCULAR VOLUME 101.3 fL (81-99); MONOCYTES # (AUTO) 1.7 (0.2-0.8); MONOCYTES % 15.3 % (4.4-11.3); NEUTROPHILS # (AUTO) 7.1 (2.1-6.9); NEUTROPHILS % 64.9 % (38.7-80.0); PLATELET COUNT 422 x10e3/uL (140-360); RED BLOOD COUNT 2.29 x10e6/uL (4.3-5.7); RED CELL DISTRIBUTION WIDTH 15.4 % (11.7-14.4)
[2020-10-22 06:15] LABS: ANION GAP 13.4 mmol/L (8-16); CALCIUM 8.4 mg/dL (8.4-10.2); CREATININE, SERUM 7.94 mg/dL (0.72-1.25); POTASSIUM 3.4 mmol/L (3.5-5.1)
[2020-10-22] MEDS: FAMOTIDINE 20 MG/2 ML VIAL IV SCH (08:52)
[2020-10-22] MEDS: PIPER-TAZ 3.375 GM 50 ML IV SCH ×2 (08:53→20:10)
[2020-10-22] MEDS: IRON SUCROSE 100 MG in SODIUM CHLORIDE 0.9% 100 ML 100 ML IV SCH (13:51)
[2020-10-22] MEDS: EPOETIN ALFA-EPBX 10,000 UNIT/ML VIAL SC SCH (20:10)
[2020-10-22] MEDS: LORAZEPAM INJ 2 MG/ML VIAL IV PRN (20:57)
[2020-10-23] VITALS: BP 121/78
[2020-10-23] MEDS: HYDROMORPHONE 1MG/1ML INJ IV PRN ×4 (01:17→10:30)
[2020-10-23 04:00] VITALS: BP 127/78
[2020-10-23] MEDS: LORAZEPAM INJ 2 MG/ML VIAL IV PRN (04:32)
[2020-10-23 06:11] LABS: BASOPHILS # (AUTO) 0.1 (0.0-0.1); BASOPHILS % 0.8 % (0.0-1.0); EOSINOPHILS # (AUTO) 0.6 (0.0-0.4); EOSINOPHILS % 4.5 % (0.0-6.0); HEMATOCRIT 26.5 % (38.2-49.6); HEMOGLOBIN 8.2 g/dL (14.0-18.0); LYMPHOCYTES # (AUTO) 1.7 (1.0-3.2); MEAN CORPUSCULAR HEMOGLOBIN 31.4 pg (28-32); MEAN CORPUSCULAR HGB CONC 30.9 g/dL (31-35); MEAN CORPUSCULAR VOLUME 101.5 fL (81-99); MONOCYTES # (AUTO) 1.8 (0.2-0.8); MONOCYTES % 14.8 % (4.4-11.3); NEUTROPHILS # (AUTO) 8.1 (2.1-6.9); NEUTROPHILS % 65.2 % (38.7-80.0); PLATELET COUNT 419 x10e3/uL (140-360); RED BLOOD COUNT 2.61 x10e6/uL (4.3-5.7); RED CELL DISTRIBUTION WIDTH 15.5 % (11.7-14.4)
[2020-10-23 06:46] LABS: ANION GAP 11.7 mmol/L (8-16); CALCIUM 8.6 mg/dL (8.4-10.2); CREATININE, SERUM 5.68 mg/dL (0.72-1.25); POTASSIUM 3.7 mmol/L (3.5-5.1)
[2020-10-23 07:39] VITALS: BP 127/77
[2020-10-23 08:10] VITALS: BP 127/77
[2020-10-23] MEDS: PIPER-TAZ 3.375 GM 50 ML IV SCH (09:05)
[2020-10-23] MEDS: FAMOTIDINE 20 MG/2 ML VIAL IV SCH (09:05)
[2020-10-23 11:33] VITALS: BP 130/90
[2020-10-23] MEDS ORDERED: ONDANSETRON HCL 4 MG ORAL DISINTEGRATING TAB PO PRN (12:15)
== END 2020-10-23 12:52 | disposition home or self-care (01) | DRG 393 ==
LOC: ER 13:10 → ERHOLD 16:20 → MED/SURG3 20:20
PROVIDERS: ADMIT Internal Medicine; ATTEND Internal Medicine
PROC: 5A1D70Z Performance of Urinary Filtration, Intermittent, Less than 6 Hours Per Day (ICD-10-PCS; 2020-10-20)
PROC: 0W9G30Z Drainage of Peritoneal Cavity with Drainage Device, Percutaneous Approach (ICD-10-PCS; principal; 2020-10-21)
PROC: 5A1D70Z Performance of Urinary Filtration, Intermittent, Less than 6 Hours Per Day (ICD-10-PCS; 2020-10-22)
DX: K91.89 Other postprocedural complications and disorders of digestive system (principal); N18.6 End stage renal disease; I12.0 Hypertensive chronic kidney disease with stage 5 chronic kidney disease or end stage renal disease; E87.6 Hypokalemia; D64.9 Anemia, unspecified; E11.22 Type 2 diabetes mellitus with diabetic chronic kidney disease; Y83.2 Surgical operation with anastomosis, bypass or graft as the cause of abnormal reaction of the patient, or of later complication, without mention of misadventure at the time of the procedure; Z99.2 Dependence on renal dialysis; E78.5 Hyperlipidemia, unspecified; Z96.641 Presence of right artificial hip joint; Z88.5 Allergy status to narcotic agent; Z88.8 Allergy status to other drugs, medicaments and biological substances; Z83.3 Family history of diabetes mellitus; Z82.49 Family history of ischemic heart disease and other diseases of the circulatory system; E78.2 Mixed hyperlipidemia; Z20.828 Contact with and (suspected) exposure to other viral communicable diseases
CPT/HCPCS: 36415; 49406; 74177; 74470; 80048; 80053; 82948; 83605; 83690; 85025; 85610; 85730; 87040; 87070; 87205; 87340; 99152; 99153; 99284; C1729; C1769; J1170; J1756; J2060; J2250; J2270; J2405; J2543; J2997; J3010; J3480; J7030; J7070; Q9967; U0002

== ENCOUNTER 2025-08-13 03:47 | Emergency (ER) | payer MEDICARE, OTHER ==
[~2025-08-13] VITALS: Ht 167.6 cm; Wt 122.5 kg
[~2025-08-13 03:47] MED LIST changes: +CALCITRIOL0.5 MCG PO; +DOCOSAHEXAENOIC ACID PO; +FISH OIL PO; +GARLIC1 EAC1 PO
[2025-08-13 03:49] VITALS: PULSE 74; RESP 19; TEMP 97.9; O2SAT 100
== END 2025-08-13 05:33 | disposition home or self-care (01) ==
LOC: ER 04:02
DX: M54.2 Cervicalgia (principal); M54.6 Pain in thoracic spine; M79.605 Pain in left leg; W17.89XA Other fall from one level to another, initial encounter; Y92.89 Other specified places as the place of occurrence of the external cause; I12.0 Hypertensive chronic kidney disease with stage 5 chronic kidney disease or end stage renal disease; E11.22 Type 2 diabetes mellitus with diabetic chronic kidney disease; N18.6 End stage renal disease; Z99.2 Dependence on renal dialysis; E78.5 Hyperlipidemia, unspecified; F41.9 Anxiety disorder, unspecified; F32.A Depression, unspecified; Z86.73 Personal history of transient ischemic attack (TIA), and cerebral infarction without residual deficits; Z94.0 Kidney transplant status
CPT/HCPCS: 70450; 72125; 72128; 99283